=== PATIENT | male | born 1990 | race African-American/Black ===

== ENCOUNTER 2017-12-20 17:45 | Emergency (ER) | payer OTHER ==
[2017-12-20 17:59] VITALS: BP 108/64; PULSE 69; TEMP 98.1; BMI 22.4
--- NOTE | 2017-12-20 18:14 | PDOC ---
History of Present Illness - General History Source: Patient Exam Limitations: No Limitations - History of Present Illness Initial Comments: 12/20/17 18:44 The patient is a 27 year old male with no past medical history who presents to the emergency department with abrasion to the right hand. Patient reports 3 days ago he punched his hand into glass and reports presence of abrasion and laceration. Denies numbness and tingling. Denies sweats, chills, fever and cough. <Jazzmine Gillespie - Last Filed: 12/20/17 18:44> <Chetan Samaniego - Last Filed: 12/20/17 19:08> - General Chief Complaint: Injury Stated Complaint: RT HAND INJURY W/ LACERATION Time Seen by Provider: 12/20/17 18:14 Past History <Jazzmine Gillespie - Last Filed: 12/20/17 18:44> - Past Medical History Asthma: Yes COPD: No - Suicide/Smoking/Psychosocial Hx Smoking History: Never smoked Have you smoked in the past 12 months: No Hx Alcohol Use: No <Chetan Samaniego - Last Filed: 12/20/17 19:08> - Past Medical History Allergies/Adverse Reactions: Allergies Allergy/AdvReac Type Severity Reaction Status Date / Time No Known Allergies Allergy Verified 12/20/17 17:47 Home Medications: Ambulatory Orders Albuterol Sulfate Inhaler - [Ventolin Hfa Inhaler -] 1 - 2 inh PO Q4H PRN Amoxicillin/Potassium Clav [Augmentin 875-125 Tablet] 1 each PO BID #14 tablet 12/20/17 Review of Systems - Review of Systems Able to Perform ROS?: Yes Comments:: 12/20/17 18:45 A complete review of 10 out of 10 review of systems is taken and is negative apart from what is previously mentioned below and in the HPI. All Other Systems: Reviewed and Negative <Jazzmine Glilespie - Last Filed: 12/20/17 18:44> *Physical Exam - Vital Signs Last Vital Signs Temp Pulse Resp BP Pulse Ox 98.1 F 69 18 108/64 100 12/20/17 17:45 12/20/17 17:45 12/20/17 17:45 12/20/17 17:45 12/20/17 17:45 - Physical Exam Comments: 12/20/17 18:46 Vitals: Triage Vital signs reviewed General Appearance: no acute distress, well nourished well developed, Extremities: Right hand 2 cm semi circular laceration on the dorsum of the knuckle at the 4th digit MCP joint. Abrasion on the dorsum of the 5th knuckle at the MCP joint. 1cm laceration at the mid dorsum. Full range of motion to all extremities, no cyanosis, clubbing, or edema Skin: Warm and dry, no rashes, no petechiae Neuro: AOX3; Cranial Nerves 2-12 grossly intact, Strength intact to all extremities, Sensation intact to all extremities Psych: normal mood, normal affect <Jazzmine Gillespie - Last Filed: 12/20/17 18:44> - Vital Signs Last Vital Signs Temp Pulse Resp BP Pulse Ox 98.1 F 69 18 108/64 100 12/20/17 17:45 12/20/17 17:45 12/20/17 17:45 12/20/17 17:45 12/20/17 17:45 <hCetan Samaniego - Last Filed: 12/20/17 19:08> Medical Decision Making - Medical Decision Making 12/20/17 18:50 The patient is a 27 year old male with no past medical history who presents to the emergency department with abrasion to the right dorsum. Patient reports 3 days ago he punched his hand into glass and reports presence of abrasion and laceration. Denies numbness and tingling. Denies sweats, chills, fever and cough. Will irrigate right hand and obtain X-ray <Jazzmine Gillespie - Last Filed: 12/20/17 18:44> - Medical Decision Making 3 hand lacerations after punching through a glass on Wednesday. Serrations thoroughly irrigated no foreign bodies noted. Given hand injury patient will be started on Augmentin bacitracin will be placed on the lacerations and covered with sterile dressings. There is very slight weakness to the extensor mechanism in the fourth digit of the patient's right hand this is most likely secondary to laceration however given the possibility of a tendon injury patient was splinted and provided with hand follow-up for this week he was instructed to call tomorrow to follow up with either Dr. Landry or Ravi chery. 12/20/17 19:08 <Chetan Samaniego - Last Filed: 12/20/17 19:08> *DC/Admit/Observation/Transfer - Attestations Scribe Attestion: 12/20/17 18:51 Documentation prepared by Jazzmine Gillespie, acting as medical stenographer for Chetan Samaniego MD <Jazzmine Gillespie - Last Filed: 12/20/17 18:44> - Discharge Dispostion Decision to Admit order: No <Chetan Samaniego - Last Filed: 12/20/17 19:08> Diagnosis at time of Disposition: Laceration Hand injury Qualifiers: Encounter type: initial encounter Laterality: right Qualified Code(s): S69.91XA - Unspecified injury of right wrist, hand and finger(s), initial encounter - Discharge Dispostion Condition at time of disposition: Stable - Prescriptions Prescriptions: Amoxicillin/Potassium Clav [Augmentin 875-125 Tablet] 1 each PO BID #14 tablet - Patient Instructions Printed Discharge Instructions: How to Care for a Surgical Wound Additional Instructions: Leave splint in place. Apply bacitracin twice a day to all lacerations then cover with bandages is provided here in the emergency department. Take Augmentin as prescribed. Follow-up with hand surgery either Dr. Thao or Dr. Rodrigues in 1-2 days. For evaluation of the weakness in the extension of the middle finger. Return to the emergency department immediately if he develops any redness pain swelling fever or signs of infection to her hand or for any concerns.
[2017-12-20] MEDS ORDERED: AMOX TR/POT CLAV 875MG/125MG TABLETS (FP) PO ONE (18:34)
[2017-12-20] MEDS ORDERED: DIPHTH,PERTUSS(ACELL),TET 0.5 ML DISP.SYRIN IM ONE (18:34)
[2017-12-20] MEDS ORDERED: AMOX TR/POT CLAV 875MG/125MG TABLETS (FP) ONE (18:36)
[2017-12-20] MEDS ORDERED: BACITRACIN 0.9 GM PACKET TP ONE (19:00)
--- NOTE | 2017-12-20 19:21 | PDOC ---
*Physical Exam - Vital Signs Last Vital Signs Temp Pulse Resp BP Pulse Ox 98.1 F 69 18 108/64 100 12/20/17 17:45 12/20/17 17:45 12/20/17 17:45 12/20/17 17:45 12/20/17 17:45 ED Treatment Course - Medications Given in the ED: ED Medications Discontinued Medications Generic Name Dose Route Start Last Admin Trade Name Amelie PRN Reason Stop Dose Admin Amoxicillin/Clavulanate Potassium 1 tab 12/20/17 18:34 12/20/17 18:45 Augmentin - 875mg Tablet PO 12/20/17 18:35 1 tab ONCE ONE Administration Bacitracin 0.9 gm 12/20/17 19:00 12/20/17 19:00 Bacitracin - TP 12/20/17 19:01 0.9 gm ONCE ONE Administration Diphtheria/Tetanus/Acell Pertussis 0.5 ml 12/20/17 18:34 12/20/17 18:45 Boostrix - IM 12/20/17 18:35 0.5 ml .ONCE ONE Administration *DC/Admit/Observation/Transfer Diagnosis at time of Disposition: Laceration Hand injury Qualifiers: Encounter type: initial encounter Laterality: right Qualified Code(s): S69.91XA - Unspecified injury of right wrist, hand and finger(s), initial encounter - Discharge Dispostion Condition at time of disposition: Stable - Prescriptions Prescriptions: Amoxicillin/Potassium Clav [Augmentin 875-125 Tablet] 1 each PO BID #14 tablet - Referrals - Patient Instructions Printed Discharge Instructions: How to Care for a Surgical Wound Additional Instructions: Leave splint in place. Apply bacitracin twice a day to all lacerations then cover with bandages is provided here in the emergency department. Take Augmentin as prescribed. Follow-up with hand surgery either Dr. Thao or Dr. Rodrigues in 1-2 days. For evaluation of the weakness in the extension of the middle finger. Return to the emergency department immediately if he develops any redness pain swelling fever or signs of infection to her hand or for any concerns. - Post Discharge Activity Forms/Work/School Notes: Back to Work
== END 2017-12-20 19:10 | disposition home or self-care (01) ==
LOC: FER 17:45
PROC: 2W3CX1Z Immobilization of Right Lower Arm using Splint (ICD-10-PCS; principal; 2017-12-20)
DX: S69.91XA Unspecified injury of right wrist, hand and finger(s), initial encounter (principal); W25.XXXA Contact with sharp glass, initial encounter; Y93.89 Activity, other specified; Y92.9 Unspecified place or not applicable
CPT/HCPCS: 73130-TC-RT-FY; 90715; 99283-25